=== PATIENT | female | born 1955 | race African-American/Black ===

== ENCOUNTER 2021-10-31 11:02 | Outpatient (CLI) | payer MEDICARE, OTHER ==
--- NOTE | 2021-11-01 09:46 | Mammography Report ---
BILATERAL DIGITAL SCREENING MAMMOGRAM 3D/2D: 10/31/2021 CLINICAL: Routine screening. Comparison is made to exams dated: 07/22/2018 mammogram, 11/11/2017 mammogram, 06/17/2017 mammogram - [facility], 11/06/2014 mammogram - [facility], 09/13/2013 mammogram, and 08/19/2012 mammogram - [facility]. There are scattered fibroglandular elements in both breasts. No significant masses, calcifications, or other findings are seen in either breast. There has been no significant interval change. IMPRESSION: NEGATIVE There is no mammographic evidence of malignancy. A 1 year screening mammogram is recommended. Based on the Tyrer Cuzick model (a risk assessment model) the patients lifetime risk is 4.3% and her 10 year risk is 2.1%. According to the ACR, ACS, and NCCN guidelines, an annual breast MRI exam irving g with mammogram is recommended if the patients lifetime risk is 20% or greater. This exam was interpreted at Station ID: [id number]. NOTE: For mammograms, a report in lay terms will be sent to the patient. Approximately 15% of breast malignancies will not be visualized mammographically. In the management of a palpable breast mass, a negative mammogram must not discourage biopsy of a clinically suspicious lesion. Electronically Signed By: Inna hall/festus:10/31/2021 17:03:36 ACR BI-RADS Category 1: Negative 3341F PARENCHYMAL PATTERN: (A) - The breast(s) demonstrate(s) scattered fibroglandular densities. BI-RADS CATEGORY: (1) - 1 RECOMMENDATION: (ANNUAL) - Recommend routine annual screening mammography. [id number] 1 year screening LATERALITY: (B)
== END 2021-10-31 11:03 | disposition home or self-care (01) ==
LOC: DI.N 11:02
PROVIDERS: ATTEND Internal Medicine
DX: Z12.31 Encounter for screening mammogram for malignant neoplasm of breast (principal)

== ENCOUNTER 2022-01-28 09:38 | Outpatient (CLI) | payer MEDICARE, OTHER ==
--- NOTE | 2022-01-28 15:48 | Ultrasound Report ---
PROCEDURE: Abdomen Complete INDICATIONS: ABD PAIN TECHNIQUE: Real-time scanning was performed of the abdominal and retroperitoneal organs, with image documentatio n. COMPARISON: None. FINDINGS: Liver: The liver measures 13.2 cm in length and demonstrates increased echogenicity. Gallbladder: The gallbladder wall measures 1.6 mm in diameter. A 4 mm polyp is present. No sludge, st ones, pericholecystic fluid or sonographic Saleh sign. Biliary ducts: Intrahepatic bile ducts are non-dilated. Extrahepatic bile duct caliber measures 6 m m. Normal is 6-7 mm or less in diameter, or 10 mm or less post-cholecystectomy. Pancreas: Visualized portions of the pancreas are sonographically normal. Spleen: Spleen is normal in size and homogeneous in echotexture. Kidneys: Kidneys are normal in size and echotexture. Right kidney measures 11.2 cm long; left kidne y measures 11.3 cm long. No hydronephrosis or nephrolithiasis. No solid masses. Aorta: Visualized aorta is normal in caliber at less than 3 cm. Iliacs: Proximal common iliac arteries are normal in caliber at less than 2.5 cm. IVC: Intrahepatic inferior vena cava is patent. Miscellaneous: No free abdominal fluid. IMPRESSION: 1. Increased hepatic echogenicity suggesting hepatic steatosis although other sources of hepatocellul ar dysfunction could be considered in the differential. Her graft 2. 4 mm gallbladder polyp. Polyps under 6-7 mm in diameter do not require interval follow-up. Reviewed by: Inan aHrry MD on 01/28/2022 3:47 PM PDT Approved by: Inna Harry MD on 01/28/2022 3:47 PM PDT Station ID: [id number]
== END 2022-01-28 09:39 | disposition home or self-care (01) ==
LOC: DI 09:38
PROVIDERS: ATTEND Internal Medicine
DX: R10.9 Unspecified abdominal pain (principal); K82.4 Cholesterolosis of gallbladder

== ENCOUNTER 2023-06-16 08:00 | Outpatient (CLI) | payer MEDICARE, OTHER ==
[2023-06-16 22:31] LABS: BACTERIAL VAGINOSIS DNA NEGATIVE (NEGATIVE); CANDIDA GLABRATA DNA NEGATIVE (NEGATIVE); CANDIDA GROUP DNA NEGATIVE (NEGATIVE); CANDIDA KRUSEI DNA NEGATIVE (NEGATIVE); TRICHOMONAS VAGINALIS DNA NEGATIVE (NEGATIVE)
== END 2023-06-16 23:59 | disposition home or self-care (01) ==
LOC: LAB.WC 08:00
PROVIDERS: ATTEND Nurse Practitioner
DX: Z12.4 Encounter for screening for malignant neoplasm of cervix (principal); N77.1 Vaginitis, vulvitis and vulvovaginitis in diseases classified elsewhere
CPT/HCPCS: 81514

== ENCOUNTER 2023-12-23 09:14 | Outpatient (CLI) | payer MEDICARE, OTHER ==
--- NOTE | 2023-12-23 11:27 | Mammography Report ---
BILATERAL DIGITAL SCREENING MAMMOGRAM 3D/2D: 12/23/2023 CLINICAL: Routine screening. Comparison is made to exams dated: 10/31/2021 mammogram - [facility], 07/22/2018 [facility], 11/11/2017 mammogram, 06/17/2017 mammogram - [facility], 11/06/2014 mammogram - [facility], and 09/13/2013 mammogram - [facility]. There are scattered areas of fibroglandular density (category b / 25%-50% glandular tissue). No significant masses, calcifications, or other findings are seen in either breast. There has been no significant interval change. IMPRESSION: NEGATIVE There is no mammographic evidence of malignancy. A 1 year screening mammogram is recommended. Based on the Tyrer Cuzick model (a risk assessment model) the patient's lifetime risk is 3.8% and her 10 year risk is 2.1%. According to the ACR, ACS, and NCCN guidelines, an annual breast MRI exam irving g with mammogram is recommended if the patient's lifetime risk is 20% or greater. This exam was interpreted at Station ID: [id number]. NOTE: For mammograms, a report in lay terms will be sent to the patient. Approximately 15% of breast malignancies will not be visualized mammographically. In the management of a palpable breast mass, a negative mammogram must not discourage biopsy of a clinically suspicious lesion. Electronically Signed By: Lavonne Bui M.D., Ph.D. eb/penrad:12/23/2023 09:40:15 ACR BI-RADS Category 1: Negative 3341F PARENCHYMAL PATTERN: (A) - The breast(s) demonstrate(s) scattered fibroglandular densities. BI-RADS CATEGORY: (1) - 1 RECOMMENDATION: (ANNUAL) - Recommend routine annual screening mammography. [id number] 1 year screening LATERALITY: (B)
== END 2023-12-23 09:15 | disposition home or self-care (01) ==
LOC: DI.N 09:14
PROVIDERS: ATTEND Family Medicine
DX: Z12.31 Encounter for screening mammogram for malignant neoplasm of breast (principal)